=== PATIENT | female | born 1945 | race Caucasian/White ===

== ENCOUNTER 2021-04-05 15:19 | Outpatient (CLI) | payer MEDICARE ==
--- NOTE | 2021-04-05 23:10 | XRAY Report ---
PROCEDURE: Knee 3 View LT INDICATIONS: LEFT KNEE PAIN TECHNIQUE: 3 views of the left knee(s) were acquired. COMPARISON: None. FINDINGS: Bones: No fractures or dislocations. Mild medial compartment joint space loss and small marginal sp ur formation. Enthesopathy at the distal quadriceps insertion. No suspicious bony lesions. Soft tissues: Small joint effusion. No suspicious soft tissue calcifications. IMPRESSION: 1. Small, nonspecific joint effusion. 2. 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 Reviewed by: Jewell Gaitan MD on 04/05/2021 11:08 PM PDT Approved by: Jewell Gaitan MD on 04/05/2021 11:08 PM PDT Station ID: [id number]
== END 2021-04-05 15:20 | disposition home or self-care (01) ==
LOC: DI.N 15:19
PROVIDERS: ATTEND Physician Assistant
DX: M17.12 Unilateral primary osteoarthritis, left knee (principal); M25.462 Effusion, left knee

== ENCOUNTER 2022-07-28 11:34 | Outpatient (CLI) | payer MEDICARE ==
[2022-07-28 18:05] LABS: ALBUMIN 3.6 g/dL (3.2-5.5); ALKALINE PHOSPHATASE 72 IU/L (42-121); ALT ALANINE AMINOTRANSFERASE 18 IU/L (10-60); AST ASPARTATE AMINOTRANSFERASE 25 IU/L (10-42); BASOPHILS % (AUTO) 0.7 %; BILIRUBIN,TOTAL 0.5 mg/dL (0.2-1.0); BUN - BLOOD UREA NITROGEN 22 mg/dL (6-20); CALCIUM 8.9 mg/dL (8.5-10.3); CARBON DIOXIDE - CO2 28 mmol/L (21-32); CHLORIDE 103 mmol/L (101-111); CHOL/HDL RATIO 3.2 (<4.4); CHOLESTEROL 183 mg/dL; CREATININE 0.6 mg/dL (0.4-1.0); EOSINOPHILS # (AUTO) 0.1 10^3/uL (0.0-0.7); EOSINOPHILS % (AUTO) 3.4 %; GFR - MDRD 97 (>89); GLUCOSE 120 mg/dL (70-100); HCT - HEMATOCRIT 40.6 % (37.0-47.0); HDL CHOLESTEROL 57 mg/dL; HGB - HEMOGLOBIN 13.1 g/dL (12.0-16.0); LDL CHOLESTEROL,CALCULATED 118 mg/dL; LDL/HDL RATIO 2.1 (<4.4); LYMPHOCYTES # (AUTO) 1.4 10^3/uL (1.5-3.5); LYMPHOCYTES % (AUTO) 33.7 %; MEAN CORPUSCULAR HEMOGLOBIN 30.5 pg (27.0-31.0); MEAN CORPUSCULAR HGB CONC 32.3 g/dL (32.0-36.0); MEAN CORPUSCULAR VOLUME 94.4 fL (81.0-99.0); MEAN PLATELET VOLUME 10.1 fL (7.9-10.8); MONOCYTES # (AUTO) 0.7 10^3/uL (0.0-1.0); MONOCYTES % (AUTO) 16.1 %; NEUTROPHILS # (AUTO) 1.9 10^3/uL (1.5-6.6); NEUTROPHILS % (AUTO) 45.9 %; PLT - PLATELET COUNT 336 10^3/uL (130-450); POTASSIUM 3.6 mmol/L (3.5-5.0); RED CELL DISTRIBUTION WIDTH 13.6 % (12.0-15.0); SODIUM 139 mmol/L (135-145); TOTAL PROTEIN 7.1 g/dL (6.7-8.2); TRIGLYCERIDES 40 mg/dL; VLDL CHOLESTEROL 8 mg/dL; WHITE BLOOD COUNT 4.1 x10^3/uL (4.8-10.8)
[2022-07-28 18:19] LABS: THYROID STIMULATING HORMONE 1.65 uIU/mL (0.34-5.60)
[2022-07-28 19:46] LABS: ESTIMATED AVERAGE GLUCOSE 137 mg/dL (70-100); HEMOGLOBIN A1c% 6.4 % (4.27-6.07)
== END 2022-07-28 11:35 | disposition home or self-care (01) ==
LOC: LAB.N 11:34
PROVIDERS: ATTEND Family Medicine
DX: I16.0 Hypertensive urgency (principal); R73.9 Hyperglycemia, unspecified; R41.3 Other amnesia
CPT/HCPCS: 36415; 80053; 80061; 82607; 83036; 83721; 84443; 85025

== ENCOUNTER 2022-09-05 11:40 | Outpatient (CLI) | payer MEDICARE ==
--- NOTE | 2022-09-06 12:59 | Mammography Report ---
BILATERAL DIGITAL DIAGNOSTIC MAMMOGRAM 3D/2D WITH AUGMENTATION: 09/05/2022 CLINICAL: Focal right breast pain. Due for bilateral. No prior exams were available for comparison. Both breasts are almost entirely fatty (category a/<25% glandular tissue). No significant masses, calcifications, or other findings are seen in either breast. The bilateral br east implants are present with expected post surgical changes. IMPRESSION: INCOMPLETE: NEEDS ADDITIONAL IMAGING EVALUATION There is no abnormality seen in the right breast to correspond with the area of clinical concern and pain indicated by square marker in the anterior depth, periareolar region of the upper outer aspect, however, an ultrasound is recommended for further evaluation and is scheduled to immediately follow this examination. Based on the Tyrer Cuzick model (a risk assessment model) the patients lifetime risk is 1.9% and her 10 year risk is 0.0%. According to the ACR, ACS, and NCCN guidelines, an annual breast MRI exam shu g with mammogram is recommended if the patients lifetime risk is 20% or greater. This exam was interpreted at Station ID: [id number]. NOTE: For mammograms, a report in lay terms will be sent to the patient. Approximately 15% of breast malignancies will not be visualized mammographically. In the management of a palpable breast mass, a negative mammogram must not discourage biopsy of a clinically suspicious lesion. Electronically Signed By: Gelacio Morgan M.D. aty/:09/05/2022 13:14:39 ACR BI-RADS Category 0: Incomplete 3340F PARENCHYMAL PATTERN: (F) - The breast(s) demonstrate(s) diffuse fatty replacement. BI-RADS CATEGORY: (0) - 0 Ultrasound [id number] Immediate follow-up LATERALITY: (R)
--- NOTE | 2022-09-06 12:59 | Ultrasound Report ---
LIMITED ULTRASOUND OF RIGHT BREAST: 09/05/2022 CLINICAL: Focal right breast pain. Comparison is made to exam dated: 09/05/2022 mammogram - [facility]. Real-time ultrasound of the right breast retroareolar was performed. Salcido scale images of the real-t telma examination were reviewed. No significant abnormalities were seen sonographically in the right breast. IMPRESSION: NEGATIVE There is no sonographic evidence of malignancy. There is no abnormality seen in the right breast to correspond with the area of clinical concern and pain at 10 o'clock in the sub-areolar depth, however, recommend clinical follow up for persistent or worsening symptoms, or development of any clinically suspicious findings. A 1 year screening mammogram is recommended. Findings and recommendations were conveyed to the patient during today's evaluation. This exam was interpreted at Station ID: [id number]. Electronically Signed By: Gelacio Morgan M.D. aty/:09/05/2022 13:54:48 Ultrasound BI-RADS: 1 Negative BI-RADS CATEGORY: (1) - 1 RECOMMENDATION: (ANNUAL) - Recommend routine annual screening mammography. [id number] 1 year screening LATERALITY: (B)
== END 2022-09-05 11:41 | disposition home or self-care (01) ==
LOC: DI 11:40
PROVIDERS: ATTEND Family Medicine
DX: N64.4 Mastodynia (principal); Z98.82 Breast implant status

== ENCOUNTER 2023-08-18 10:52 | Outpatient (CLI) | payer MEDICARE ==
[2023-08-18 18:55] LABS: BASOPHILS % (AUTO) 0.6 %; EOSINOPHILS # (AUTO) 0.2 10^3/uL (0.0-0.7); EOSINOPHILS % (AUTO) 4.5 %; HCT - HEMATOCRIT 39.1 % (37.0-47.0); HGB - HEMOGLOBIN 13.1 g/dL (12.0-16.0); LYMPHOCYTES # (AUTO) 1.5 10^3/uL (1.5-3.5); LYMPHOCYTES % (AUTO) 28.9 %; MEAN CORPUSCULAR HGB CONC 33.5 g/dL (32.0-36.0); MEAN CORPUSCULAR VOLUME 95.4 fL (81.0-99.0); MEAN PLATELET VOLUME 10.3 fL (7.9-10.8); MONOCYTES # (AUTO) 0.7 10^3/uL (0.0-1.0); MONOCYTES % (AUTO) 14.4 %; NEUTROPHILS # (AUTO) 2.6 10^3/uL (1.5-6.6); NEUTROPHILS % (AUTO) 51.6 %; PLT - PLATELET COUNT 290 10^3/uL (130-450); RED CELL DISTRIBUTION WIDTH 12.5 % (12.0-15.0); WHITE BLOOD COUNT 5.1 x10^3/uL (4.8-10.8)
[2023-08-18 19:27] LABS: THYROID STIMULATING HORMONE 1.62 uIU/mL (0.34-5.60)
[2023-08-18 19:49] LABS: ALBUMIN/GLOBULIN RATIO 1.4 (1.0-2.2); ALKALINE PHOSPHATASE 64 IU/L (42-121); ALT ALANINE AMINOTRANSFERASE 17 IU/L (10-60); AST ASPARTATE AMINOTRANSFERASE 21 IU/L (10-42); BILIRUBIN,TOTAL 0.4 mg/dL (0.2-1.0); BUN - BLOOD UREA NITROGEN 17 mg/dL (6-20); CALCIUM 9.3 mg/dL (8.5-10.3); CARBON DIOXIDE - CO2 27 mmol/L (21-32); CHLORIDE 105 mmol/L (101-111); CHOL/HDL RATIO 2.6 (<4.4); CHOLESTEROL 151 mg/dL; CREATININE 0.5 mg/dL (0.6-1.3); GFR - MDRD 119 (>89); GLUCOSE 126 mg/dL (74-104); HDL CHOLESTEROL 57 mg/dL; LDL CHOLESTEROL,CALCULATED 84 mg/dL; LDL/HDL RATIO 1.5 (<4.4); POTASSIUM 3.9 mmol/L (3.5-4.5); SODIUM 139 mmol/L (135-145); TOTAL PROTEIN 6.9 g/dL (6.4-8.9); TRIGLYCERIDES 52 mg/dL (48-352); VLDL CHOLESTEROL 10 mg/dL
[2023-08-18 21:04] LABS: ESTIMATED AVERAGE GLUCOSE 137 mg/dL (70-100); HEMOGLOBIN A1c% 6.4 % (4.27-6.07)
== END 2023-08-18 10:53 | disposition home or self-care (01) ==
LOC: LAB.N 10:52
PROVIDERS: ATTEND Family Medicine
DX: I10 Essential (primary) hypertension (principal); R53.83 Other fatigue; E78.5 Hyperlipidemia, unspecified; R73.9 Hyperglycemia, unspecified; R73.03 Prediabetes
CPT/HCPCS: 36415; 80053; 80061; 83036; 83721; 84443; 85025

== ENCOUNTER 2024-04-16 12:22 | Outpatient (CLI) | payer MEDICARE ==
[2024-04-16 19:04] LABS: CREATININE,URINE 79.9 mg/dL; MICROALBUM/CREATININE RATIO,UR 18.8 ug/mg (<30.0); MICROALBUMIN,URINE 1.5 mg/dL
[2024-04-16 21:20] LABS: ESTIMATED AVERAGE GLUCOSE 134 mg/dL (70-100); HEMOGLOBIN A1c% 6.3 % (4.27-6.07)
== END 2024-04-16 12:23 | disposition home or self-care (01) ==
LOC: LAB.N 12:22
PROVIDERS: ATTEND Nurse Practitioner
DX: E11.9 Type 2 diabetes mellitus without complications (principal)
CPT/HCPCS: 36415; 82043; 82570; 83036